=== PATIENT | male | born 1990 | race Caucasian/White ===

== ENCOUNTER 2022-06-03 12:25 | Emergency (ER) | payer SELFPAY ==
[2022-06-03 13:00] VITALS: BP 123/84
== END 2022-06-03 15:20 | disposition home or self-care (01) ==
LOC: ED 12:25
DX: L30.9 Dermatitis, unspecified (principal); F17.210 Nicotine dependence, cigarettes, uncomplicated; Z28.310 Unvaccinated for COVID-19; W57.XXXA Bitten or stung by nonvenomous insect and other nonvenomous arthropods, initial encounter